=== PATIENT | female | born 1950 | race Caucasian/White ===

== ENCOUNTER 2023-05-11 11:16 | Inpatient (IN) | payer MEDICARE ==
[2023-05-11] MEDS ORDERED: Acetaminophen 325 MG TAB PO PRN (17:07)
[2023-05-11] MEDS: Nystatin Cream 15 GM TUBE TOP SCH (20:55)
[2023-05-11] MEDS: Apixaban 5 MG TAB PO SCH (20:55)
[2023-05-11] MEDS: Latanoprost 0.005% Ophth Soln 2.5 ml Bottle EA EYE SCH (20:55)
[2023-05-12] MEDS: cefTRIAXone\\ROCEPHIN 2 GM in Sodium Chloride 0.9% 100 ML IVPB SCH (05:42)
[2023-05-12] MEDS ORDERED: cefTRIAXone (ROCEPHIN) 2 GM VIAL IVPB SCH (06:00)
[2023-05-12] MEDS ORDERED: Atorvastatin Calcium 10 MG TAB PO SCH (09:00)
[2023-05-12] MEDS: Potassium Chloride 20 MEQ TAB PO SCH (09:24)
[2023-05-12] MEDS: Citalopram 20 MG TAB PO SCH (09:24)
[2023-05-12] MEDS: Montelukast Sodium 10 mg Tablet PO SCH (09:25)
[2023-05-12] MEDS: Apixaban 5 MG TAB PO SCH ×2 (09:27→20:28)
[2023-05-12] MEDS: Spironolactone 25 MG TAB PO SCH (09:27)
[2023-05-12] MEDS: Nystatin Cream 15 GM TUBE TOP SCH ×2 (09:28→20:31)
[2023-05-12] MEDS: Furosemide 40 MG TAB PO SCH (09:29)
[2023-05-12] MEDS: Atorvastatin Calcium 10 MG TAB PO SCH (20:28)
[2023-05-12] MEDS: Latanoprost 0.005% Ophth Soln 2.5 ml Bottle EA EYE SCH (20:29)
[2023-05-12 21:05] VITALS: BMI 40.3
[2023-05-13] MEDS: cefTRIAXone\\ROCEPHIN 2 GM in Sodium Chloride 0.9% 100 ML IVPB SCH (05:00)
[2023-05-13] MEDS: Potassium Chloride 20 MEQ TAB PO SCH (08:26)
[2023-05-13] MEDS: Spironolactone 25 MG TAB PO SCH (08:26)
[2023-05-13] MEDS: Apixaban 5 MG TAB PO SCH ×2 (08:26→20:43)
[2023-05-13] MEDS: Furosemide 40 MG TAB PO SCH (08:27)
[2023-05-13] MEDS: Citalopram 20 MG TAB PO SCH (08:27)
[2023-05-13] MEDS: Nystatin Cream 15 GM TUBE TOP SCH ×2 (09:44→22:00)
[2023-05-13] MEDS: Montelukast Sodium 10 mg Tablet PO SCH (10:00)
[2023-05-13] MEDS: Atorvastatin Calcium 10 MG TAB PO SCH (20:44)
[2023-05-13] MEDS: Latanoprost 0.005% Ophth Soln 2.5 ml Bottle EA EYE SCH (22:00)
[2023-05-14] MEDS: cefTRIAXone\\ROCEPHIN 2 GM in Sodium Chloride 0.9% 100 ML IVPB SCH (05:29)
[2023-05-14] MEDS: Apixaban 5 MG TAB PO SCH ×2 (08:42→21:03)
[2023-05-14] MEDS: Potassium Chloride 20 MEQ TAB PO SCH (08:42)
[2023-05-14] MEDS: Citalopram 20 MG TAB PO SCH (08:43)
[2023-05-14] MEDS: Spironolactone 25 MG TAB PO SCH (08:43)
[2023-05-14] MEDS: Furosemide 40 MG TAB PO SCH (08:43)
[2023-05-14] MEDS: Nystatin Cream 15 GM TUBE TOP SCH ×2 (08:45→21:03)
[2023-05-14] MEDS: Montelukast Sodium 10 mg Tablet PO SCH (09:15)
[2023-05-14] MEDS: Atorvastatin Calcium 10 MG TAB PO SCH (21:03)
[2023-05-14] MEDS: Latanoprost 0.005% Ophth Soln 2.5 ml Bottle EA EYE SCH (21:03)
[2023-05-15] MEDS: cefTRIAXone\\ROCEPHIN 2 GM in Sodium Chloride 0.9% 100 ML IVPB SCH (04:13)
[2023-05-15] MEDS: Apixaban 5 MG TAB PO SCH (08:14)
[2023-05-15] MEDS: Spironolactone 25 MG TAB PO SCH (08:14)
[2023-05-15] MEDS: Citalopram 20 MG TAB PO SCH (08:14)
[2023-05-15] MEDS: Potassium Chloride 20 MEQ TAB PO SCH (08:14)
[2023-05-15] MEDS: Nystatin Cream 15 GM TUBE TOP SCH (08:14)
[2023-05-15] MEDS: Montelukast Sodium 10 mg Tablet PO SCH (08:16)
[2023-05-15] MEDS: Furosemide 40 MG TAB PO SCH (08:21)
[2023-05-15 11:10] VITALS: BP 126/71; TEMP 97.9
== END 2023-05-15 11:15 | disposition home or self-care (01) | DRG 690 ==
LOC: BURMED 12:24
PROVIDERS: ADMIT Family Medicine; ATTEND Family Medicine
DX: N39.0 Urinary tract infection, site not specified (principal); I48.91 Unspecified atrial fibrillation; I50.9 Heart failure, unspecified; E78.5 Hyperlipidemia, unspecified; Z79.899 Other long term (current) drug therapy; I11.0 Hypertensive heart disease with heart failure; Z79.01 Long term (current) use of anticoagulants
CPT/HCPCS: J0696; J3490